=== PATIENT | male | born 1965 | race Caucasian/White ===

== ENCOUNTER → 2018-06-10 | Outpatient (CLI) | payer OTHER ==
[2018-06-10 09:27] LABS: PLATELET COUNT, AUTOMATED 318 K/uL (150-450)
--- NOTE | 2018-06-10 09:27 | EKG ---
FACILITY: [facility] PATIENT NAME: HAIDER MEJIA : [id number] MR: [id number]: [id number] EXAM DATE: ORDERING PHYSICIAN: BELIA PATEL TECHNOLOGIST: GARRY Test Reason : PRE OP Blood Pressure : / mmHG Vent. Rate : 083 BPM Atrial Rate : 083 BPM P-R Int : 132 ms QRS Dur : 092 ms QT Int : 374 ms P-R-T Axes : 038 -31 010 degrees QTc Int : 439 ms Sinus rhythm Left axis deviation Diffuse T wave abnormalities Abnormal ECG No previous ECGs available Confirmed by LUIS EDUARDO CHAMBERLAIN ([id number]) on 06/10/2018 2:52:08 PM Referred By: JORGE Confirmed By:LUIS EDUARDO CHAMBERLAIN
== END ==
LOC: LAB 09:05
PROVIDERS: ATTEND Anesthesiology
DX: Z01.812 Encounter for preprocedural laboratory examination (principal); Z01.810 Encounter for preprocedural cardiovascular examination; S62.609A Fracture of unspecified phalanx of unspecified finger, initial encounter for closed fracture; R94.31 Abnormal electrocardiogram [ECG] [EKG]
CPT/HCPCS: 36415; 82040; 82247; 82310; 82374; 82435; 82565; 82947; 84075; 84132; 84155; 84295; 84450; 84460; 84520; 85025; 93005